=== PATIENT | male | born 1955 | race Caucasian/White ===

== ENCOUNTER 2019-09-13 17:44 | Inpatient (IN) | payer MEDICARE, SELFPAY ==
[2019-09-13 17:46] VITALS: BP 107/46; PULSE 72; RESP 15; TEMP 37.5; O2SAT 96; BMI 34.9
[2019-09-13 18:59] LABS: Absolute Lymphocyte Count 1.16 X10^3/uL (0.83-4.51); Absolute Neutrophil Count 10.5 X10^3/uL (2.0-7.7); Basophil# 0.02 X10^3/uL; Basophil% 0.2 % (0-1); Eosinophil# 0.07 X10^3/uL; Eosinophils% 0.6 % (0-5); Hematocrit 36.6 % (40-54); Hemoglobin 12.4 g/dL (13.0-16.5); Lymphocyte # 1.16 X10^3/ul (4.0); Lymphocyte % 9.3 % (19-41); Mean Corp Hgb Conc 33.9 g/dL (32-36); Mean Corpuscular Hgb 29.5 pg (27.0-32.0); Mean Corpuscular Volume 87.1 fL (80-94); Mean Platelet Vol. 10.6 fl (6.2-12.0); Monocyte# 0.78 X10^3/uL; Monocyte% 6.2 % (0-10); NRBC Flagged by Analyzer 0 % (0-5); Neutrophil # 10.48 X10^3/uL (2.7-7.7); Neutrophil % 83.5 % (47-70); Platelet Count 229 K/mm3 (150-450); RBC Distribution Width CV 13.3 % (11.6-14.6); White Blood Count 12.5 K/mm3 (4.4-11.0)
[2019-09-13 19:10] LABS: ALB/GLOB Ratio 0.8 RATIO (0.9-2.4); AST(SGOT) 17 U/L (15-37); Alanine Aminotransfer ALT/SGPT 23 U/L (16-61); Albumin, Serum 3.1 g/dL (3.2-5.0); Alkaline Phosphatase 70 U/L (45-117); Anion Gap 7 (5-15); BUN 32 mg/dL (7-18); BUN/Creat Ratio 17.9 RATIO (10-20); Chloride 106 mmol/L (98-107); Creatinine, Serum 1.79 mg/dL (0.70-1.30); EST Glomerular Filtration Rate 41 mL/min (>60); Est Glom Filt Rate - Afr Amer 49 mL/min (>60); Estimated Creatinine Clearance 42.48 ml/min; Globulin 4.1 g/dL (2.2-4.2); Glucose 123 mg/dL (74-106); Potassium 3.8 mmol/L (3.5-5.1); Protein, Total 7.2 g/dL (6.4-8.2); Sodium Level 139 mmol/L (136-145)
--- NOTE | 2019-09-13 19:17 | ED.RN ---
notified Dr. Martin of lactic acid 2.0
[2019-09-13] MEDS: 0.9% Normal Saline 1,000 ML 150 ML IV (19:28)
[2019-09-13 20:00] VITALS: BP 124/61; PULSE 62; RESP 16; TEMP 37.7; O2SAT 98
[2019-09-13 20:02] LABS: Mucous, Urine 0 SEEN /hpf (<or=2+)
[2019-09-13 20:10] LABS: Color, Urine Yellow (Yellow); Glucose, Dipstick Normal (Normal); Ketone-Dipstick 5 mg/dl (Negative); Leukocyte Esterase-Dipstick 25 /ul (Negative); Nitrite-Dipstick Negative (Negative); Occult Blood-Urine 10 /ul (Negative); Protein-Dipstick 30 mg/dl (Negative); Urine Clarity Sl. Cloudy (Clear); Urine Urobilinogen 1 mg/dl (Normal)
[2019-09-13 20:15] LABS: Urine Bilirubin Dipstick 1 mg/dL (Negative)
[2019-09-13 20:18] LABS: Bacteria RARE /hpf (None Seen); Red Blood Cells-Urine 0-5 SEEN /hpf (0-5); Squamous Epithelial Cells - UA 0-5 SEEN /hpf (0-5); White Blood Cells 0-5 SEEN /hpf (0-5)
--- NOTE | 2019-09-13 20:30 | ED.DCSUM_ITS ---
- ER Visit Summary Date of Service: 09/13/19 Chief Complaint: [Flulike symptoms] History of Present Illness: The patient is a 63 M [presents to the emergency department with flulike symptoms that started this morning. Patient states that he just generally feels weak and achy and fatigued. Patient's had chills. Patient has just minimal cough. He denies headache or runny nose. Patient is concerned and was advised by his oncologist to be evaluated as he is currently being treated with Opdivo for metastatic colon cancer. He denies any other medical history.] Patient has had prior history of cellulitis and sepsis regarding that bout of cellulitis which patient states was acutely life- threatening at that time. Physical Examination: [HEENT-PERRLA, EOMI. Cranial nerves II through XII grossly intact. TMs clear. Mucous membranes moist. No adenopathy. Cardiovascular-regular rate and rhythm without murmur or ectopy Lungs-clear to auscultation, chest wall stable without crepitus or subcu emphysema Abdomen-normoactive bowel sounds, soft, nontender, no rebound or rigidity, no peritoneal signs. Extremities-intact ?4, normal range of motion, normal pulses, atraumatic. Right lower extremity-patient has diffuse erythema from just below the knee to the dorsum of the foot. Findings consistent with cellulitis.] Test Results: [CBC with differential obtained showed a white count 12.5, hemoglobin 12.4, hematocrit 36.6, platelets 229. Chemistries unremarkable. BUN was 32 and creatinine 1.79. Urinalysis was normal. Lactate was 2.0.] Emergency Department Course and Treatment: [Patient was started on Unasyn 3 g IV. Patient had the area of erythema outlined with marker.] Treatment Plan: [Admit for IV antibiotics as patient is immune compromised.] Disposition: [Admit] Impression: Cellulitis right lower extremity] This note was generated with [employer] dictation software. It may contain incorrect words, spelling, and punctuation that were not noted in review of the chart prior to signing ED Disposition - Plan for ED Patient: Referrals: Anabela Arita MD [Primary Care Provider] -
--- NOTE | 2019-09-13 20:43 | PCM.HP.STD ---
Problem List (1) Cellulitis Status: Acute History of Present Illness Date of Admission: 09/14/19 Chief Complaint: flu-like symptoms The patient is a 63 year old M with significant history of CAD; status post stent; colon cancer status post colectomy and now on Opdivo who presents emergency department with flulike symptoms. His symptoms started the same day of presentation. He reports his symptoms as a body aches, low-grade fever with temperature of 99.3; chills; rigors; and a cough productive of yellow sputum. Patient's called patient's oncologist Dr. Urban Zendejas at [place] who advised that patient be brought to the emergency department. While at the emergency department, ED doctor noticed that patient had a redness on his right lloyd. Reportedly patient had cellulitis of his left leg some years ago and he nearly from it. A decision was made to admit the patient at the hospital. Past Medical History Medical History: Medical History (Last Reviewed 09/14/19 @ 02:[address] Miguel Obregon MD) Colon cancer C18.9 Allergies No Known Allergies Allergy (Verified 09/13/19 17:48) Home Medications: Ambulatory Orders Medication Instructions Recorded Aspirin [Aspirin, Baby] 81 mg PO DAILY@0800 09/13/19 Carvedilol 25 mg PO BID 09/13/19 Clonidine HCl 0.3 mg PO BID 09/13/19 Isosorbide Mononitrate [Isosorbide 30 mg PO DAILY 09/13/19 Mononitrate ER] Losartan/Hydrochlorothiazide 1 tab PO QHS 09/13/19 [Hyzaar 50-12.5 Tablet] Morphine [Morphine IR] 15 mg PO TID PRN 09/13/19 traMADol [Ultram (G)] 100 mg PO BID PRN 09/13/19 Surgical History: - - Colectomy; Coronary stent Lives: Spouse/ Significant Other Smoking Status: Former smoker Alcohol: None - *Family History Maternal History Items: Cancer - Breast, Dementia Paternal History Items: Heart Disease - His father had heart valve problem. Review of Systems Constitutional: Reports: Chills, Fever. Denies: Weight Change HEENT: Denies: Head Aches, Sinus Congestion, Sinus Drainage Cardiovascular: Denies: Chest Pain, Palpitations Respiratory: Reports: Cough, Sputum production. Denies: Shortness of breath at rest Gastrointestinal: Denies: Abdominal Pain, Nausea, Vomiting Genitourinary: Denies: Dysuria Musculoskeletal: Reports: Muscle pain. Denies: Joint Pain, Joint Tenderness Skin: Denies: Rash, Wounds Neurological: Denies: Numbness, Tingling, Focal weakness Psychiatric: Denies: Anxiety, Depression, Homicidal Ideations, Suicidal Ideations Hematologic/ Lymphatic: Denies: Easy Bruising, Easy Bleeding VTE Information - Inpt Only VTE Present on Admission: No VTE Mechan Device Prophylaxis: None VTE Pharm Prophylaxis ordered?: Yes Patient Problems: Active and Suspected Problems (Last Updated 09/14/19 @ 01:[address] Miguel Obregon MD) Cellulitis (Acute) - Physical Exam Vitals/I&O's: Vital Signs Temp Pulse Resp BP Pulse Ox 99.8 F H 62 16 124/61 H 98 09/13/19 20:00 09/13/19 20:00 09/13/19 20:00 09/13/19 20:00 09/13/19 20:00 Oxygen Delivery Method Room Air Weight: 110.5 kg Body Mass Index (BMI) 34.9 General: Alert, Oriented x3, Cooperative HEENT: Atraumatic, PERRLA, EOMI, Normocephalic Neck: Supple, No JVD, Negative Carotid Bruits Lungs: Clear to auscultation, Normal air movement Cardiovascular: Regular rate, Normal S1, Normal S2, Murmur Abdomen: Bowel Sounds Present, Soft, Non Tender Extremities: No edema, Capillary Refill Less than 3 Seconds Skin: No rashes, No breakdown, - - Erythema of right lloyd Musculoskeletal: No Tenderness to Palpation of Joints or Extremities, Tenderness - Mild tenderness erythematous area of right lloyd. Neurological: Cranial nerves II-XII grossly intact Psych/Mental Status: Normal Affect, Appropriate Microbiology Past 72 Hours 09/13/19 18:52 Mucosa - Nasopharyngeal Influenza Types A,B Direct FA (BRANDEN) - Final Laboratory Results 09/13/19 18:30: WBC 12.5 H, RBC 4.20 L, Hgb 12.4 L, Hct 36.6 L, MCV 87.1, MCH 29.5, MCHC 33.9, RDW Std Deviation 42.0, RDW Coeff of Henrry 13.3, Plt Count 229, MPV 10.6, Immature Gran % (Auto) 0.200, Neut % (Auto) 83.5 H, Lymph % (Auto) 9.3 L, [place] % (Auto) 6.2, Eos % (Auto) 0.6, Baso % (Auto) 0.2, Absolute Neuts (auto) 10.5 H, Absolute Lymphs (auto) 1.16, Nucleated RBC % 0 09/13/19 18:30: Sodium 139, Potassium 3.8, Chloride 106, Carbon Dioxide 26.0, Anion Gap 7, BUN 32 H, Creatinine 1.79 H, Estim Creat Clear Calc 42.48, Est GFR (MDRD) Af Amer 49 L, Est GFR (MDRD) Non-Af 41 L, BUN/Creatinine Ratio 17.9, Glucose 123 H, Calcium 9.0, Total Bilirubin 1.10 H, AST 17, ALT 23, Alkaline Phosphatase 70, Total Protein 7.2, Albumin 3.1 L, Globulin 4.1, Albumin/Globulin Ratio 0.8 L 09/13/19 18:30: Lactic Acid 2.0 09/13/19 19:50: Urine Color Yellow, Urine Clarity Sl. Cloudy, Urine pH 5.0, Ur Specific [place] 1.020, Urine Protein 30 H, Urine Glucose (UA) Normal, Urine Ketones 5 H, Urine Occult Blood 10 H, Urine Nitrite Negative, Urine Bilirubin 1 H, Urine Urobilinogen 1 H, Ur Leukocyte Esterase 25 H, Urine RBC 0-5 SEEN, Urine WBC 0-5 SEEN, Ur Squamous Epith Cells 0-5 SEEN, Urine Bacteria RARE, Urine Mucus 0 SEEN Current Medications Sodium Chloride () 1,000 mls @ 150 mls/hr IV .Q6H40M SAMMY Last Admin: 09/13/19 19:28 Dose: 150 mls/hr Documented by: Assessment/Plan All Active Problems (Last Updated 09/14/19 @ 01:[address] Miguel Obregon MD) Cellulitis (Acute) The patient is a 63 year old M with significant history of CAD S/P stent; colon cancer status post colectomy and now on Opdivo who presents emergency department with flulike symptoms of erythema on the right lloyd with some mild tenderness consistent with cellulitis. Cellulitis Patient received Unasyn at emergency department. We will continue patient on Unasyn. We will trend CBC and BMP. Tylenol for fever. Colon cancer status post resection and on Opdivo Home morphine and tramadol continued. Outpatient follow-up. TRISTIN On presentation his creatinine was 1.79. Review of community records show that on 09/04/2019 his creatinine was 1.06; and on 08/07/2019 his creatinine was 1.32. On presentation was 32. BUN over creatinine is 17.9. This point towards possible intrinsic renal failure. We will hydrate with IV fluids. Avoid nephrotoxins. Trend BMP. Hypertension On presentation his blood pressure was stable On home clonidine; carvedilol; Imdur; losartan and hydrochlorothiazide. Continue home blood pressure medications. Trend blood pressure and adjust blood pressure medication as necessary. DVT Prophylaxis Subcutaneous Lovenox. Code Visit Inpatient E&M: 21802 Init Hosp L3
--- NOTE | 2019-09-13 22:36 | ED.RN ---
hospitalist aware of not being able to bring in CPAP tonight and would like to use hospital CPAP
[2019-09-13 22:51] VITALS: BMI 35.0; BMI 35.1
[2019-09-13 22:54] LABS: Reflex Lactate? Y
[2019-09-13 23:40] VITALS: BP 116/60; PULSE 59; RESP 16; TEMP 36.8; O2SAT 95
[2019-09-13 23:51] LABS: Lactic Acid 0.7 mmol/L (0.4-1.9)
--- NOTE | 2019-09-14 02:21 | NURSING ---
500 CC BAG FROM ED INFUSING @ 100ML/HR.
[2019-09-14 06:11] VITALS: BP 163/72; PULSE 62; RESP 16; TEMP 36.7; O2SAT 93
[2019-09-14 06:21] LABS: Absolute Lymphocyte Count 2.11 X10^3/uL (0.83-4.51); Absolute Neutrophil Count 4.2 X10^3/uL (2.0-7.7); Basophil# 0.02 X10^3/uL; Basophil% 0.3 % (0-1); Eosinophil# 0.05 X10^3/uL; Eosinophils% 0.7 % (0-5); Hematocrit 32.8 % (40-54); Hemoglobin 10.8 g/dL (13.0-16.5); Lymphocyte # 2.11 X10^3/ul (4.0); Lymphocyte % 30.1 % (19-41); Mean Corp Hgb Conc 32.9 g/dL (32-36); Mean Corpuscular Hgb 28.6 pg (27.0-32.0); Mean Platelet Vol. 10.2 fl (6.2-12.0); Monocyte# 0.65 X10^3/uL; Monocyte% 9.3 % (0-10); NRBC Flagged by Analyzer 0 % (0-5); Neutrophil # 4.15 X10^3/uL (2.7-7.7); Neutrophil % 59.3 % (47-70); Platelet Count 154 K/mm3 (150-450); RBC Distribution Width CV 13.5 % (11.6-14.6); RBC Distribution Width SD 43.2 fl (35.1-43.9); Red Blood Count 3.77 M/mm3 (4.6-6.2)
[2019-09-14 06:44] LABS: Anion Gap 5 (5-15); BUN 34 mg/dL (7-18); BUN/Creat Ratio 24.3 RATIO (10-20); Calcium,Total 8.5 mg/dL (8.5-10.1); Chloride 106 mmol/L (98-107); EST Glomerular Filtration Rate 54 mL/min (>60); Est Glom Filt Rate - Afr Amer 65 mL/min (>60); Estimated Creatinine Clearance 54.32 ml/min; Glucose 92 mg/dL (74-106); Potassium 3.4 mmol/L (3.5-5.1); Sodium Level 140 mmol/L (136-145)
[2019-09-14] MEDS: 0.9% Normal Saline 1,000 ML 100 ML IV ×2 (06:49→18:21)
[2019-09-14 07:25] VITALS: O2SAT 93
[2019-09-14 07:38] VITALS: PULSE 70
[2019-09-14] MEDS: Nystatin Powder 15gm Bottle 1 APPLIC TOPICAL (07:47)
[2019-09-14] MEDS: Enoxaparin 40 MG/0.4 ML Syringe SC (07:47)
[2019-09-14] MEDS: Carvedilol 25 MG Tablet PO ×2 (07:48→21:10)
[2019-09-14] MEDS: cloNIDine HCl 0.1 MG Tablet 0.3 MG PO ×2 (07:48→21:10)
[2019-09-14] MEDS: Isosorbide Mononitrate 30 MG Tablet PO (07:49)
[2019-09-14] MEDS: Aspirin 81 MG TAB.CHEW PO (07:49)
[2019-09-14] MEDS: traMADol 50 MG Tablet 100 MG PO ×2 (07:57→21:12)
[2019-09-14 10:30] VITALS: BP 109/55; PULSE 57; RESP 16; TEMP 36.6; O2SAT 98
[2019-09-14] MEDS: morphine (oral solution) 10MG/0.5ML Syringe 15 MG PO ×2 (10:37→16:20)
--- NOTE | 2019-09-14 11:07 | PCM.PN.HOSP ---
Patient Problems: Active and Suspected Problems (Last Reviewed 09/14/19 @ 02:[address] Miguel Obregon MD) Cellulitis (Acute) Reason for Visit: Right leg cellulitis. Patient on immunotherapy for CA colon status post surgery and chemotherapy. Objective: Right lower leg rash is improving. No open ulcer. Vitals/I&O's: Vital Signs Temp Pulse Resp BP Pulse Ox 97.8 F 57 L 16 109/55 L 98 09/14/19 10:30 09/14/19 10:30 09/14/19 10:30 09/14/19 10:30 09/14/19 10:30 Oxygen Delivery Method Room Air Weight: 244 lb 7.882 oz Body Mass Index (BMI) 35.0 Intake and Output for Last 24 Hours 09/12/19 09/13/19 09/14/19 23:59 23:59 23:59 Intake Total 112 / 112 1724 / 1724 Balance 112 / 112 1724 / 1724 General: Alert, Oriented x3, Cooperative HEENT: Atraumatic, PERRLA, EOMI, Normocephalic Neck: Supple, No JVD, Negative Carotid Bruits Lungs: Clear to auscultation, Normal air movement, No rhonchi, No wheeze, No rales Cardiovascular: Regular rate, Regular Rhythm, Normal S1, Normal S2, No murmurs Abdomen: Bowel Sounds Present, Soft, Non Tender, Non-Distended Extremities: No edema, Capillary Refill Less than 3 Seconds Skin: No rashes, No breakdown Musculoskeletal: No Tenderness to Palpation of Joints or Extremities, Arthritic Changes Neurological: Cranial nerves II-XII grossly intact, Deep Tendon Reflexes 2+/4 and Symmetrical, Neuro grossly intact Psych/Mental Status: Normal Affect, Appropriate Microbiology Past 72 Hours 09/13/19 18:52 Mucosa - Nasopharyngeal Influenza Types A,B Direct FA (BRANDEN) - Final Laboratory Results 09/13/19 18:30: WBC 12.5 H, RBC 4.20 L, Hgb 12.4 L, Hct 36.6 L, MCV 87.1, MCH 29.5, MCHC 33.9, RDW Std Deviation 42.0, RDW Coeff of Henrry 13.3, Plt Count 229, MPV 10.6, Immature Gran % (Auto) 0.200, Neut % (Auto) 83.5 H, Lymph % (Auto) 9.3 L, [place] % (Auto) 6.2, Eos % (Auto) 0.6, Baso % (Auto) 0.2, Absolute Neuts (auto) 10.5 H, Absolute Lymphs (auto) 1.16, Nucleated RBC % 0 09/13/19 18:30: Sodium 139, Potassium 3.8, Chloride 106, Carbon Dioxide 26.0, Anion Gap 7, BUN 32 H, Creatinine 1.79 H, Estim Creat Clear Calc 42.48, Est GFR (MDRD) Af Amer 49 L, Est GFR (MDRD) Non-Af 41 L, BUN/Creatinine Ratio 17.9, Glucose 123 H, Calcium 9.0, Total Bilirubin 1.10 H, AST 17, ALT 23, Alkaline Phosphatase 70, Total Protein 7.2, Albumin 3.1 L, Globulin 4.1, Albumin/Globulin Ratio 0.8 L 09/13/19 18:30: Lactic Acid 2.0 09/13/19 19:50: Urine Color Yellow, Urine Clarity Sl. Cloudy, Urine pH 5.0, Ur Specific [place] 1.020, Urine Protein 30 H, Urine Glucose (UA) Normal, Urine Ketones 5 H, Urine Occult Blood 10 H, Urine Nitrite Negative, Urine Bilirubin 1 H, Urine Urobilinogen 1 H, Ur Leukocyte Esterase 25 H, Urine RBC 0-5 SEEN, Urine WBC 0-5 SEEN, Ur Squamous Epith Cells 0-5 SEEN, Urine Bacteria RARE, Urine Mucus 0 SEEN 09/13/19 23:15: Lactic Acid 0.7 09/14/19 05:55: WBC 7.0, RBC 3.77 L, Hgb 10.8 L, Hct 32.8 L, MCV 87.0, MCH 28.6, MCHC 32.9, RDW Std Deviation 43.2, RDW Coeff of Henrry 13.5, Plt Count 154, MPV 10.2, Immature Gran % (Auto) 0.300, Neut % (Auto) 59.3, Lymph % (Auto) 30.1, [place] % (Auto) 9.3, Eos % (Auto) 0.7, Baso % (Auto) 0.3, Absolute Neuts (auto) 4.2, Absolute Lymphs (auto) 2.11, Nucleated RBC % 0 09/14/19 05:55: Sodium 140, Potassium 3.4 L, Chloride 106, Carbon Dioxide 29.0, Anion Gap 5, BUN 34 H, Creatinine 1.40 H, Estim Creat Clear Calc 54.32, Est GFR (MDRD) Af Amer 65, Est GFR (MDRD) Non-Af 54 L, BUN/Creatinine Ratio 24.3 H, Glucose 92, Calcium 8.5 Current Medications Acetaminophen (Tylenol) 650 mg PO Q6H PRN PRN PRN Reason: Pain Score 1-10/Temp > 100.7 F Aspirin (Aspirin, Baby) 81 mg PO DAILY@0800 [facility] Last Admin: 09/14/19 07:49 Dose: 81 mg Documented by: Carvedilol (Coreg) 25 mg PO BID [facility] Last Admin: 09/14/19 07:48 Dose: 25 mg Documented by: Clonidine (Catapres) 0.3 mg PO BID [facility] Last Admin: 09/14/19 07:48 Dose: 0.3 mg Documented by: Enoxaparin Sodium (Lovenox) 40 mg SC DAILY [facility] Last Admin: 09/14/19 07:47 Dose: 40 mg Documented by: Glucagon () 1 mg IM .X1 PRN PRN Reason: Hypoglycemia Hydrochlorothiazide () 12.5 mg PO DAILY@2200 [facility] Ampicillin Sodium/Sulbactam (Sodium 3 gm/ Sodium Chloride) 112 mls @ 150 mls/hr IV Q6 [facility] Last Infusion: 09/14/19 07:14 Dose: Infused Documented by: Dextrose (Dextrose 10%-Water) 250 mls @ 999 mls/hr IV .Q16M PRN; Protocol PRN Reason: HYPOGLYCEMIA Sodium Chloride () 250 mls @ 15 mls/hr IV .[id number] PRN PRN Reason: Saline Flush Sodium Chloride () 250 mls @ 15 mls/hr IV .[id number] PRN PRN Reason: Additional IVPB Infusion Sodium Chloride () 1,000 mls @ 100 mls/hr IV .Q10H [facility] Last Infusion: 09/14/19 07:14 Dose: 100 mls/hr Documented by: Isosorbide Mononitrate (Imdur) 30 mg PO DAILY [facility] Last Admin: 09/14/19 07:49 Dose: 30 mg Documented by: Losartan Potassium (Cozaar) 50 mg PO DAILY@2200 [facility] Melatonin (Melatonin) 3 mg PO QHS PRN PRN PRN Reason: INSOMNIA Morphine Sulfate (Roxanol (Ir Oral Solution)) 15 mg PO TID PRN PRN PRN Reason: PAIN 6-1010 Last Admin: 09/14/19 10:37 Dose: 15 mg Documented by: Nystatin (Mycostatin Powder) 1 applic TOPICAL BID [facility]; Protocol Last Admin: 09/14/19 07:47 Dose: 1 applicatio Documented by: Ondansetron HCl (Zofran) 4 mg IV Q8H PRN PRN PRN Reason: NAUSEA/VOMITING Sodium Chloride () 10 - 40 ml IV UD PRN PRN Reason: SALINE FLUSH Tramadol HCl (Ultram) 100 mg PO BID PRN PRN PRN Reason: PAIN 4-510 Last Admin: 09/14/19 07:57 Dose: 100 mg Documented by: STROKE Vital Signs/Narrative: Vital Signs Temp Pulse Resp BP Pulse Ox 09/14/19 10:30 97.8 F 57 L 16 109/55 L 98 09/14/19 07:38 70 09/14/19 07:25 93 Medical Necessity - Tobacco Use Smoking Status: Former smoker Tobacco Use: Cigarettes Assessment/Plan All Active Problems (Last Reviewed 09/14/19 @ 02:[address] Miguel Obregon MD) Cellulitis (Acute) The patient is a 63 year old M with significant history of CAD S/P stent; colon cancer status post colectomy and now on Opdivo who presents emergency department with flulike symptoms of erythema on the right lloyd with some mild tenderness consistent with cellulitis. Cellulitis: On Unasyn. Leukocytosis is resolved. Colon cancer status post resection and on Opdivo. Opdivo on hold. Home morphine and tramadol continued. Outpatient follow-up. TRISTIN On presentation his creatinine was 1.79. on 09/04/2019 his creatinine was 1.06; and on 08/07/2019 his creatinine was 1.32. BUN 32, BUN/creatinine 17.9. It seems most likely secondary to intrinsic renal failure/ATN: Continue IV fluid. Improvement in creatinine. Avoid nephrotoxins. Hypertension On presentation his blood pressure was stable On home clonidine; carvedilol; Imdur; losartan and hydrochlorothiazide. Continue home blood pressure medications. Trend blood pressure and adjust blood pressure medication as necessary. DVT Prophylaxis Subcutaneous Lovenox. Code Visit Inpatient E&M: 56967 Subs Hosp L2
--- NOTE | 2019-09-14 12:05 | CASEMGMT ---
RN JACKY Face to Face with patient for initial transition planning/care coordination assessment. RN CM introduced self and role at [facility]. Patient lying in bed, alert and oriented. Patient willing to participate in assessment and is able to answer all questions appropriately. Care providers, pharmacy, and demographics verified. Patient wishes to discharge home, denies need for home health at this time. Patient states he has no further needs or concerns at this time. CM to follow for discharge planning needs that may arise. PCP: Juan J Specialists: Aashish Oncologist; Preferred Pharmacy: [facility] Prescription Benefit: yes Living Will/HPOA: none LNOK: Living Arrangements: Patient lives with in an apartment on 1st floor with 4 steps and railing to enter the home. Patient independent at home. Transportation: self/ DME/HHC: Patient has cpap at home. Patient denies further DME or HHC. Disposition Plan: Patient to discharge home with family support and follow-up plans in place. Samira FLORES, RN, CM
[2019-09-14 14:47] VITALS: BP 132/74; PULSE 54; RESP 16; TEMP 36.6; O2SAT 98
[2019-09-14 19:42] VITALS: BP 157/80; PULSE 56; RESP 16; TEMP 36.6; O2SAT 100
[2019-09-15] VITALS (8 sets, daily range): BP systolic 158–185; BP diastolic 66–84; PULSE 52–59; RESP 16–18; TEMP 36.5–36.9; O2SAT 94–991
[2019-09-15] MEDS: 0.9% Normal Saline 1,000 ML 100 ML IV (05:06)
[2019-09-15 06:38] LABS: Absolute Lymphocyte Count 1.75 X10^3/uL (0.83-4.51); Absolute Neutrophil Count 2.4 X10^3/uL (2.0-7.7); Basophil# 0.02 X10^3/uL; Basophil% 0.4 % (0-1); Eosinophil# 0.22 X10^3/uL; Eosinophils% 4.5 % (0-5); Hematocrit 32.9 % (40-54); Hemoglobin 10.9 g/dL (13.0-16.5); Lymphocyte # 1.75 X10^3/ul (4.0); Lymphocyte % 35.8 % (19-41); Mean Corp Hgb Conc 33.1 g/dL (32-36); Mean Corpuscular Hgb 29.2 pg (27.0-32.0); Mean Corpuscular Volume 88.2 fL (80-94); Mean Platelet Vol. 10.6 fl (6.2-12.0); Monocyte# 0.52 X10^3/uL; Monocyte% 10.6 % (0-10); NRBC Flagged by Analyzer 0 % (0-5); Neutrophil # 2.37 X10^3/uL (2.7-7.7); Neutrophil % 48.5 % (47-70); Platelet Count 147 K/mm3 (150-450); RBC Distribution Width CV 13.3 % (11.6-14.6); RBC Distribution Width SD 43.2 fl (35.1-43.9); Red Blood Count 3.73 M/mm3 (4.6-6.2); White Blood Count 4.9 K/mm3 (4.4-11.0)
[2019-09-15 07:07] LABS: Anion Gap 5 (5-15); BUN 28 mg/dL (7-18); BUN/Creat Ratio 27.7 RATIO (10-20); Calcium,Total 8.5 mg/dL (8.5-10.1); Chloride 111 mmol/L (98-107); Creatinine, Serum 1.01 mg/dL (0.70-1.30); EST Glomerular Filtration Rate 79 mL/min (>60); Est Glom Filt Rate - Afr Amer 95 mL/min (>60); Estimated Creatinine Clearance 75.29 ml/min; Glucose 100 mg/dL (74-106); Potassium 3.7 mmol/L (3.5-5.1); Sodium Level 139 mmol/L (136-145)
[2019-09-15] MEDS: Aspirin 81 MG TAB.CHEW PO (08:44)
[2019-09-15] MEDS: morphine (oral solution) 10MG/0.5ML Syringe 15 MG PO (09:04)
[2019-09-15] MEDS: cloNIDine HCl 0.1 MG Tablet 0.3 MG PO (09:11)
[2019-09-15] MEDS: Carvedilol 25 MG Tablet PO (09:11)
[2019-09-15] MEDS: Enoxaparin 40 MG/0.4 ML Syringe SC (09:12)
[2019-09-15] MEDS: Nystatin Powder 15gm Bottle 1 APPLIC TOPICAL (09:13)
[2019-09-15] MEDS: Isosorbide Mononitrate 30 MG Tablet PO (09:15)
--- NOTE | 2019-09-15 10:15 | PCM.DC ---
- Discharge Diagnoses Current Active Problems: Current Active and Chronic Problems (Last Reviewed 09/14/19 @ 02:[address] Miguel Obregon MD) Cellulitis (Acute) You will use the following diet at home:: Cardiac Your food should be the consistency of: Regular Discharge Activity: May Not Drive - for 2 weeks until he sees PCP Weight Bearing Status: Weight bearing as tolerated Call your doctor if you observe: Fever of 101 or Higher, Coldness, Increased Pain, Inability to urinate, Inability to have a bowel movement, Shortness of breath, Dizziness, Fainting spells, Swelling in the ankles, Chest pain, Prolonged hiccoughing, Increased palpitations (irregular heartbeat), Calf discomfort Allergies/Adverse Reactions: Allergies cat dander Allergy (Verified 09/13/19 23:23) itchy, watery eyes Medications to take at Discharge Aspirin [Aspirin, Baby] 81 mg PO DAILY@0800 09/13/19 Carvedilol 25 mg PO BID 09/13/19 Clonidine HCl 0.3 mg PO BID 09/13/19 Isosorbide Mononitrate [Isosorbide Mononitrate ER] 30 mg PO DAILY 09/13/19 Losartan/Hydrochlorothiazide [Hyzaar 50-12.5 Tablet] 1 tab PO QHS 09/13/19 Morphine [Morphine IR] 15 mg PO TID PRN 09/13/19 traMADol [Ultram] 100 mg PO BID PRN 09/13/19 Amoxicillin/Potassium Clav [Augmentin 875-125 Tablet] 1 ea PO BID #14 tab 09/15/19 The following prescriptions were given: Amoxicillin/Potassium Clav [Augmentin 875-125 Tablet] 1 ea PO BID #14 tab Transmission Status: Sent to [facility] Primary Care Physician: Anabela Arita MD [Primary Care Provider] - Please follow up with your Primary Care Physician in: IN 2 WEEKS Test Results: Test results from this visit will be discussed in further detail at your follow-up appointment, if applicable. Please Follow Up With: Chong Loera MD When: PRN as needed for cellulitis in 2-4 weeks
--- NOTE | 2019-09-15 10:16 | PCM.DC.SUM ---
Discharge Date and Diagnosis Date of Admission: 09/14/19 Date of Discharge: 09/15/19 - Primary Discharge Diagnosis Active and Suspected Problems (Last Reviewed 09/14/19 @ 02:[address] Miguel Obregon MD) Cellulitis (Acute) Hospital Course and Treatment Summary of Care Provided: [] The patient is a 63 year old M with significant history of CAD S/P stent; colon cancer status post colectomy and now on Opdivo who presents emergency department with flulike symptoms of erythema on the right lloyd with some mild tenderness consistent with cellulitis. Cellulitis: On Unasyn. Leukocytosis is resolved. Colon cancer status post resection and on Opdivo. Opdivo on hold. Home morphine and tramadol continued. Outpatient follow-up. TRISTIN On presentation his creatinine was 1.79. on 09/04/2019 his creatinine was 1.06; and on 08/07/2019 his creatinine was 1.32. BUN 32, BUN/creatinine 17.9. It seems most likely secondary to intrinsic renal failure/ATN: Continue IV fluid. Improvement in creatinine. Avoid nephrotoxins. Hypertension urgency: As per patient, his blood pressure usually controlled but today it is high. 168/73, 175/75. Hydralazine 10 mg IV every 4 hourly as needed. On clonidine 0.3 mg twice daily. Continue clonidine; carvedilol; Imdur; losartan and hydrochlorothiazide. Continue home blood pressure medications. Blood pressure was controlled. Patient takes losartan HCTZ in the evening. Blood pressure decreased to systolic 160s. DVT Prophylaxis Subcutaneous Lovenox. Discharge medication reconciliation done. Discharge follow-up instructions completed. Discharge process discussed with the patient and all questions were answered to patient's satisfaction. Follow-up PCP for better control of hypertension. Total time spent, exact 35 minutes on discharge meds reconciliation, examination, coordination of care with nurses and ancillary staff, review of imaging and blood test and discussion with the patient on follow-up instructions - Physical Exam Vitals/I&O's: Vital Signs Temp Pulse Resp BP Pulse Ox 98.0 F 59 L 18 185/78 H 94 09/15/19 08:47 09/15/19 08:47 09/15/19 08:47 09/15/19 08:47 09/15/19 08:56 Oxygen Delivery Method Room Air Weight: 244 lb 7.882 oz Body Mass Index (BMI) 35.0 Intake and Output for Last 24 Hours 09/13/19 09/14/19 09/15/19 23:59 23:59 23:59 Intake Total 112 / 112 4513 / 4763 969.00 / 969.00 Output Total 775 / 775 Balance 112 / 112 4513 / 4238 194.00 / 194.00 General: Alert, Oriented x3, Cooperative HEENT: Atraumatic, PERRLA, EOMI, Normocephalic Oral: No Gingival or Mucosal Lesions/ Ulcerations, Dry Mucosa Neck: Supple, No JVD, Negative Carotid Bruits, - Lungs: Normal air movement, No rhonchi, No wheeze, No rales, Diminished Cardiovascular: Regular rate, Regular Rhythm, Normal S1, Normal S2, No murmurs, - - Blood pressure is high Abdomen: Bowel Sounds Present, Soft, Non Tender, Non-Distended Extremities: No edema, Capillary Refill Less than 3 Seconds Skin: No rashes, No breakdown, Rash Present - Much improved Musculoskeletal: No Tenderness to Palpation of Joints or Extremities, Arthritic Changes Neurological: Cranial nerves II-XII grossly intact Psych/Mental Status: Normal Affect, Appropriate Microbiology Past 72 Hours 09/13/19 18:52 Mucosa - Nasopharyngeal Influenza Types A,B Direct FA (BRANDEN) - Final Laboratory Results 09/15/19 06:16: WBC 4.9, RBC 3.73 L, Hgb 10.9 L, Hct 32.9 L, MCV 88.2, MCH 29.2, MCHC 33.1, RDW Std Deviation 43.2, RDW Coeff of Henrry 13.3, Plt Count 147 L, MPV 10.6, Immature Gran % (Auto) 0.200, Neut % (Auto) 48.5, Lymph % (Auto) 35.8, Mcclain % (Auto) 10.6 H, Eos % (Auto) 4.5, Baso % (Auto) 0.4, Absolute Neuts (auto) 2.4, Absolute Lymphs (auto) 1.75, Nucleated RBC % 0 09/15/19 06:16: Sodium 139, Potassium 3.7, Chloride 111 H, Carbon Dioxide 23.0, Anion Gap 5, BUN 28 H, Creatinine 1.01, Estim Creat Clear Calc 75.29, Est GFR (MDRD) Af Amer 95, Est GFR (MDRD) Non-Af 79, BUN/Creatinine Ratio 27.7 H, Glucose 100, Calcium 8.5 Current Medications Acetaminophen (Tylenol) 650 mg PO Q6H PRN PRN PRN Reason: Pain Score 1-10/Temp > 100.7 F Aspirin (Aspirin, Baby) 81 mg PO DAILY@0800 [facility] Last Admin: 09/15/19 08:44 Dose: 81 mg Documented by: Carvedilol (Coreg) 25 mg PO BID [facility] Last Admin: 09/15/19 09:11 Dose: 25 mg Documented by: Clonidine (Catapres) 0.3 mg PO BID [facility] Last Admin: 09/15/19 09:11 Dose: 0.3 mg Documented by: Enoxaparin Sodium (Lovenox) 40 mg SC DAILY [facility] Last Admin: 09/15/19 09:12 Dose: 40 mg Documented by: Glucagon () 1 mg IM .X1 PRN PRN Reason: Hypoglycemia Hydralazine HCl (Apresoline Iv) 10 mg IV Q4H PRN PRN PRN Reason: SBP>180 mmhg Hydralazine HCl (Apresoline) 50 mg PO BID [facility] Ampicillin Sodium/Sulbactam (Sodium 3 gm/ Sodium Chloride) 112 mls @ 150 mls/hr IV Q6 [facility] Last Infusion: 09/15/19 05:52 Dose: Infused Documented by: Dextrose (Dextrose 10%-Water) 250 mls @ 999 mls/hr IV .Q16M PRN; Protocol PRN Reason: HYPOGLYCEMIA Sodium Chloride () 250 mls @ 15 mls/hr IV .[id number] PRN PRN Reason: Saline Flush Sodium Chloride () 250 mls @ 15 mls/hr IV .[id number] PRN PRN Reason: Additional IVPB Infusion Sodium Chloride () 1,000 mls @ 100 mls/hr IV .Q10H [facility] Last Infusion: 09/15/19 05:52 Dose: 100 mls/hr Documented by: Isosorbide Mononitrate (Imdur) 30 mg PO DAILY [facility] Last Admin: 09/15/19 09:15 Dose: 30 mg Documented by: Melatonin (Melatonin) 3 mg PO QHS PRN PRN PRN Reason: INSOMNIA Morphine Sulfate (Roxanol (Ir Oral Solution)) 15 mg PO TID PRN PRN PRN Reason: PAIN 6-10/10 Last Admin: 09/15/19 09:04 Dose: 15 mg Documented by: Nystatin (Mycostatin Powder) 1 applic TOPICAL BID SAMMY; Protocol Last Admin: 09/15/19 09:13 Dose: 1 applicatio Documented by: Ondansetron HCl (Zofran) 4 mg IV Q8H PRN PRN PRN Reason: NAUSEA/VOMITING Sodium Chloride () 10 - 40 ml IV UD PRN PRN Reason: SALINE FLUSH Tramadol HCl (Ultram) 100 mg PO BID PRN PRN PRN Reason: PAIN 4-510 Last Admin: 09/14/19 21:12 Dose: 100 mg Documented by: Home Medications: Medications to take at Discharge Aspirin [Aspirin, Baby] 81 mg PO DAILY@0800 09/13/19 Carvedilol 25 mg PO BID 09/13/19 Clonidine HCl 0.3 mg PO BID 09/13/19 Isosorbide Mononitrate [Isosorbide Mononitrate ER] 30 mg PO DAILY 09/13/19 Losartan/Hydrochlorothiazide [Hyzaar 50-12.5 Tablet] 1 tab PO QHS 09/13/19 Morphine [Morphine IR] 15 mg PO TID PRN 09/13/19 traMADol [Ultram] 100 mg PO BID PRN 09/13/19 Amoxicillin/Potassium Clav [Augmentin 875-125 Tablet] 1 ea PO BID #14 tab 09/15/19 Following Prescrptions Were Given to Patient: Amoxicillin/Potassium Clav [Augmentin 875-125 Tablet] 1 ea PO BID #14 tab Transmission Status: Received by [facility] Primary Care Physician: Anabela Arita MD [Primary Care Provider] - Medical Necessity - Tobacco Use Smoking Status: Former smoker Tobacco Use: Cigarettes Meaningful Use Info Meaningful Use Diagnoses (Choose all that apply): None applicable Code Visit Inpatient E&M: 57516 Disch Hosp
[2019-09-15] MEDS: traMADol 50 MG Tablet 100 MG PO (12:01)
[2019-09-15] MEDS: hydrALAZINE 20 MG/ML Vial 5 MG IV (13:53)
[2019-09-15] MEDS: hydrALAZINE 20 MG/ML Vial 10 MG IV (15:34)
[2019-09-15] MEDS: 0.9% Saline Lock 10 ML Syringe IV (15:36)
== END 2019-09-15 17:08 | disposition home or self-care (01) | DRG 602 ==
LOC: ED 20:57 → MS3 21:06
PROVIDERS: Admitting Provider Hospitalist; Emergency Provider Emergency Medicine; PCP Counselor Mental Health; Visit Provider Internal Medicine
DX: L03.115 Cellulitis of right lower limb (principal); N17.0 Acute kidney failure with tubular necrosis; C18.9 Malignant neoplasm of colon, unspecified; I16.0 Hypertensive urgency; I10 Essential (primary) hypertension; Z90.49 Acquired absence of other specified parts of digestive tract; Z95.5 Presence of coronary angioplasty implant and graft; Z79.899 Other long term (current) drug therapy; Z87.891 Personal history of nicotine dependence
CPT/HCPCS: 36415; 80048; 80053; 81001; 83605; 85025; 87040; 87804; 99285; J7030; J7040; A4216; J0295

== ENCOUNTER → 2021-12-13 | Outpatient (CLI) | payer MEDICARE, SELFPAY ==
--- NOTE | 2021-12-13 13:57 | ECHOCS_ITS ---
Reason For Study: CAD/ASHD Procedure This was a 2D Doppler, Color Flow transthoracic echocardiogram. The study was technically difficult. Contrast injection was performed. Exam performed in department. Left Ventricle Normal LV size. Moderate concentric left ventricular hypertrophy. Left ventricular systolic function is normal. The estimated ejection fraction is 65 %. No regional wall motion abnormalities noted. Right Ventricle Normal RV size. Normal systolic function. Atria The left atrium is moderately enlarged. The right atrium is moderately enlarged. Mitral Valve Normal mitral valve. Tricuspid Valve Normal tricuspid valve. Mild tricuspid valve insufficiency. Pulmonary artery systolic pressure is 20 mmHg. Aortic Valve Trisinus/trileaflet aortic valve. Peak aortic valve gradient 38 mmHg. Mean aortic valve gradient 20 mmHg. Moderate aortic stenosis. Pulmonic Valve Normal pulmonic valve. Great Vessels Normal aortic root. The pulmonary artery is normal size. Normal inferior vena cava. Pericardium/Pleural No pericardial effusion. Medication 22 gauge I.V. with prn adaptor inserted into right arm. Diluted definity 3ml given slow IV push to enhance endocardial definition. MMode/2D Measurements & Calculations LVIDd: 5.1 cm IVSd: 2.0 cm LVOT diam: 2.0 cm LVIDs: 2.8 cm LVPWd: 1.8 cm RVDd: 4.3 cm FS: 46.3 % LVOT area: 3.3 cm2 LAV(MOD-bp): 112.5 ml LA A4 area: 30.8 cm2 RA A4 area: 28.3 cm2 LAV(MOD-bp) Indexed: 49.0 ml/m2 LAV(MOD-sp2): 102.9 ml LAV(MOD-sp4): 119.1 ml Doppler Measurements & Calculations MV E max bhargavi: 111.7 cm/sec Ao V2 max: 307.0 cm/sec LV V1 max: 94.5 cm/sec Ao max P.8 mmHg LV V1 max P.6 mmHg Ao V2 mean: 200.3 cm/sec LV V1 mean P.1 mmHg Ao mean P.1 mmHg LV V1 mean: 68.8 cm/sec Ao V2 VTI: 63.2 cm LV V1 VTI: 23.2 cm SHARON(I,D): 1.2 cm2 SHARON(V,D): 1.0 cm2 SV(LVOT): 75.6 ml PA V2 max: 80.3 cm/sec TR max bhargavi: 216.8 cm/sec TR max P.8 mmHg ECHO/Echo Complete W/ Contrast Interpretation Summary Normal LV size. Left ventricular systolic function is normal. The estimated ejection fraction is 65 %. Mean aortic valve gradient 20 mmHg. Moderate aortic stenosis. The left atrium is moderately enlarged. The right atrium is moderately enlarged. Moderate concentric left ventricular hypertrophy. Contrast injection was performed. Ordering Physician: LILY QUINONES Referring Physician: LILY QUINONES Performed By: Valerio Jennings RCS
== END | disposition home or self-care (01) ==
LOC: CVS 13:55
DX: I25.10 Atherosclerotic heart disease of native coronary artery without angina pectoris (principal)
CPT/HCPCS: 93306; Q9957; A4216; C8929

== ENCOUNTER 2023-07-31 13:39 | Emergency (ER) | payer MEDICARE, SELFPAY ==
[2023-07-31 13:41] VITALS: BP 139/73; PULSE 92; RESP 18; TEMP 36.1; O2SAT 97; BMI 40.0
--- NOTE | 2023-07-31 15:20 | EX.ED.DYSGE1 ---
HPI History of Present Illness Chief Complaint: Lower Extremity Injury [facility] Medical History (Updated 07/31/23 @ 15:[address] Walter Johnson, DO) Colon cancer Home Medications Losartan/Hydrochlorothiazide [Hyzaar 50-12.5 Tablet] 1 tab PO QHS BP 09/13/19 [History Last Taken 09/12/19 23:00] aspirin 81 mg chewable tablet 81 mg PO DAILY@0800 [facility] 09/13/19 [History Last Taken Unknown] carvedilol 25 mg tablet 25 mg PO BID BP 09/13/19 [History Last Taken 09/13/19 09:00] clonidine HCl 0.3 mg tablet 0.3 mg PO BID BP 09/13/19 [History Last Taken 09/13/19 09:00] isosorbide mononitrate 30 mg tablet,extended release 24 hr 30 mg PO DAILY BP 09/13/19 [History Last Taken 09/13/19 09:00] morphine 15 mg immediate release tablet 15 mg PO TID PRN Pain Or Fever 09/13/19 [History Last Taken 09/13/19 17:00] tramadol 50 mg tablet 100 mg PO BID PRN pain 09/13/19 [History Last Taken 09/13/19 17:00] amoxicillin 875 mg-potassium clavulanate 125 mg tablet 1 ea PO BID #14 tabs 09/15/19 [Rx Last Taken Unknown] cephalexin 500 mg capsule 500 mg PO Q6 #28 CAPSULES 07/31/23 [Rx Last Taken Unknown] sulfamethoxazole 800 mg-trimethoprim 160 mg tablet (Bactrim DS) 1 tab PO BID #14 tabs 07/31/23 [Rx Last Taken Unknown] Allergy/AdvReac Type Severity Reaction Status Date / Time cat dander Allergy itchy, Verified 07/31/23 13:43 watery eyes Social History Smoking Status: Former smoker EXAM Physical Exam Const Vital Signs: 07/31/23 13:41 Temperature 97 F L Temperature Source Temporal Pulse Rate 92 Respiratory Rate 18 Blood Pressure 139/73 H Blood Pressure Mean 95 Pulse Ox 97 Oxygen Delivery Method Room Air MDM MDM MDM Narrative Medical decision making narrative: HISTORY OF PRESENT ILLNESS: 67-year-old male here for leg pain. Notes he had recent trauma to the left lower extremity noted redness to the back of his left leg. Patient denies active cancer, being bedridden for greater than 3 days, denies unilateral leg swelling, denies any varicose veins, denies any calf tenderness, denies tenderness along deep venous system. Denies major surgery within 12 weeks, recent paralysis, previous DVT. REVIEW OF SYSTEMS: Pertinent positives: Leg pain Pertinent negatives: Nausea, vomiting PHYSICAL EXAM: Nursing triage notes reviewed, Vital signs reviewed Constitutional: please see mdm Extremities: Slight edema noted to bilateral lower extremities Neuro: N intact sensation L1-S1 dermatomal distributions. Intact 5/5 strength in hip flexion (T12-L3). Knee extension (L2-L4). Ankle dorsiflexion (L4-L5). Ankle plantar flexion (S1). Great toe extension (L5). 2+ patellar and Achilles DTRs. Skin: Approximate 10 x 10 cm area of redness to the posterior calf, no fluctuance, induration, no crepitus. MEDICAL DECISION MAKING: Chief Complaint: Leg pain External records reviewed: No recent ED visits or hospitalizations, no recent imaging studies Factors affecting care: hypertension [facility] Narrative: Patient was hemodynamically stable, afebrile, nontoxic-appearing. Exam consistent with cellulitis. I considered the following differential diagnosis: Fracture, dislocation, DVT, arterial occlusion, cellulitis, necrotizing fasciitis THe patient has a low Wells DVT score. He had no significant trauma or point tenderness over bony regions to suggest fracture or dislocation. He had symmetric pulses. There is no fluctuance, induration, crepitus or bullae to suggest necrotizing fasciitis. THe patient was treated with broad-spectrum antibiotics. We had a long shared decision-making discussion about his immunocompromise state given colon cancer and immunotherapy. Patient understood risk and benefits of poor response antibiotics and worsening infection and sepsis. Cellulitis was marked with a skin marker and patient was told to return if redness progressed quickly over a matter of hours or if he cannot tolerate antibiotics or if you not see improvement in 3 days. He was given Keflex and Bactrim for broad staph and strep coverage. The patient and/or family, caregivers express understanding. The patient and/or family, caregivers agrees with the plan. Shared decision making: I will have a discussion with the patient and or visitors regarding risk/benefits of further testing or admission. They will be made aware of of the risk/benefits inherent in this decision they will be given the opportunity to voice understanding. Total critical care time today provided was at least 0 minutes. This excludes separately billable procedures. Critical care time (if documented) is secondary to the patient having high probability of clinically significant/life threatening deterioration in the patient's condition which required my urgent intervention. Impression: 1. Cellulitis Dispo: Discharge home Discharge Plan Triage Chief Complaint: Lower Extremity Injury ED Provider: Walter Johnson Dx/Rx/DC Orders Clinical Impression: Cellulitis Instructions: Cellulitis Dc Prescriptions: New cephalexin 500 mg capsule 500 mg PO Q6 Qty: 28 0RF sulfamethoxazole-trimethoprim [Bactrim DS] 800-160 mg tablet 1 tab PO BID Qty: 14 0RF No Action carvedilol 25 MG tablet 25 mg PO BID isosorbide mononitrate 30 MG tablet extended release 24 hr 30 mg PO DAILY clonidine HCl 0.3 MG tablet 0.3 mg PO BID tramadol 50 MG tablet 100 mg PO BID PRN (Reason: pain) aspirin 81 MG tablet,chewable 81 mg PO DAILY@0800 morphine 15 MG tablet 15 mg PO TID PRN (Reason: Pain Or Fever) Losartan/Hydrochlorothiazide [Hyzaar 50-12.5 Tablet] 1 TAB tablet 1 tab PO QHS amoxicillin-pot clavulanate 1 EACH tablet 1 ea PO BID Qty: 14 0RF Primary Care Provider: Bigg Crane Referrals: Bigg Crane PA [Primary Care Provider] - Activity Restrictions/Additional Instructions: Thank you for trusting us with your care today! You have been diagnosed with cellulitis. Please take Tylenol (2 pills, 650 mg), ibuprofen (2 pills, 400 mg) every 6 hours as needed for pain and fever control. Please take antibiotics until course is complete. Please return to the emergency department if your symptoms change or worsen. Specifically if you develop fever, chills, vomiting, worsening redness, rapidly progressive redness. If your symptoms do not show improvement within 3 days. Please follow with your primary care physician for further outpatient evaluation and management. Disposition Disposition: Home, Self Care Discharge Date/Time: 07/31/23 16:00
[2023-07-31] MEDS: Cephalexin 250 MG Capsule 500 MG PO (15:43)
[2023-07-31] MEDS: Smz/Tmp Ds Tablet 1 TABLET PO (15:43)
== END 2023-07-31 16:00 | disposition home or self-care (01) ==
PROVIDERS: Emergency Provider Emergency Medicine; PCP Physician Assistant; Visit Provider Emergency Medicine
DX: L03.116 Cellulitis of left lower limb (principal); Z87.891 Personal history of nicotine dependence; Z86.718 Personal history of other venous thrombosis and embolism
CPT/HCPCS: 99283

== ENCOUNTER 2025-03-11 20:34 | Emergency (ER) | payer MEDICARE, SELFPAY ==
[2025-03-11 20:34] VITALS: BP 192/100; PULSE 79; RESP 18; TEMP 36.8; O2SAT 98; BMI 36.8
--- NOTE | 2025-03-11 20:58 | EDS_ITS ---
HPI History of Present Illness Chief Complaint: Other, Pain/Inj Detail of Chief Complaint: neck stiffness Informant: patient Narrative Narrative: 69-year-old male presenting with neck pain and stiffness. He states this started yesterday gradually, much worse as the day has gone on today. He denies headache, fevers, chills, vision changes, photophobia, nausea, vomiting, peripheral neurologic symptoms or disequilibrium/trouble walking. He denies any injury that he can recall. He states he lifted a heavy bag of dog food yesterday but this was after the neck stiffness started did not seem to make him hurt worse. It does hurt worse if he turns his head both ways, worse to the right. Does not recall ever having had this before. He states he is concerned about meningitis. He is on immunotherapy for metastatic colon cancer, he d escribes metastases that were found below the diaphragm only many of which have been treated. [facility] Medical History (Updated 03/11/25 @ 22:[address] Rony Sifuentes MD) Atrial fibrillation Colon cancer Home Medications ?Medication ?Instructions ?Recorded ?Last Taken ?Type Losartan/Hydrochlorothiazide 1 tab PO QHS BP 09/13/19 09/12/19 23:00 History [Hyzaar 50-12.5 Tablet] aspirin 81 mg chewable tablet 81 mg PO DAILY@0800 [facility] 09/13/19 Unknown History carvedilol 25 mg tablet 25 mg PO BID BP 09/13/19 09:00 History clonidine HCl 0.3 mg tablet 0.3 mg PO BID BP 09/13/19 09/13/19 09:00 History isosorbide mononitrate 30 mg 30 mg PO DAILY BP 0 09/13/19 09:00 History tablet,extended release 24 hr morphine 15 mg immediate release 15 mg PO TID PRN Pain Or Fever 09/13/19 09/13/19 17:00 History tablet tramadol 50 mg tablet 100 mg PO BID PRN pain 09/1309/13/19 17:00 History amoxicillin 875 mg-potassium 1 ea PO BID #14 tabs 08/23 12/08 Unknown Rx clavulanate 125 mg tablet cephalexin 500 mg capsule 500 mg PO Q6 #28 CAPSULES Unknown Rx sulfamethoxazole 800 1 tab PO BID #14 tabs Unknown Rx mg-trimethoprim 160 mg tablet (Bactrim DS) Allergy/AdvReac Type Severity Reaction Status Date / Time cat dander Allergy itchy, Verified 03/11/25 20:34 watery eyes Family History no significant family his Social History Smoking Status: Former smoker ROS ROS ED Constitutional Constitutional ED: Denies chills or fever(s) Eyes Eyes: Denies change in vision or diplopia ENT ENT ED: Denies rhinorrhea or sore throat Cardiovascular Cardiovascular: Denies chest pain or palpitations Respiratory/Chest Respiratory/Chest: Denies cough or dyspnea Gastrointestinal Gastrointestinal: Denies abdominal pain, diarrhea, nausea or vomiting Genitourinary Genitourinary ED: Denies dysuria or hematuria Musculoskeletal Musculoskeletal: Reports as per HPI, neck pain and stiffness; Denies back pain, numbness or radiating pain into limb Integumentary Denies abscess or rash Neurologic Neurologic: Denies headache(s), paresthesias or weakness Psychiatric Psychiatric: Denies anxiety or suicidal thoughts EXAM Physical Exam Const Vital Signs: 03/11/25 20:34 03/11/25 20:40 Temperature 98.2 F Temperature Source Temporal Pulse Rate 79 Respiratory Rate 18 Respiratory Effort Normal Non-Labored Blood Pressure 192/100 H Blood Pressure Mean 130 Pulse Ox 98 Oxygen Delivery Method Room Air Positive well nourished and well developed Constitutional Narrative: Well-appearing conversive no distress General Appearance ED: well developed and NAD HEENT Reports moist mucous membranes normocephalic and atraumatic Eyes PERRL and EOMs intact bilaterally Neck Neck Narrative: Limited range of motion due to pain, but there is no meningismus. There is rig idity when I get to limits that make his pain significant. There is no posterior midline or paraspinal cervical tenderness. He has a shorter limit turning his head to the right than the left. He can take his chin down to his chest without any difficulty. Resp normal respiratory effort and clear to auscultation bilaterally Cardio regular rate, regular rhythm and no murmurs GI non-tender and non-distended Auscultation: normoactive bowel sounds Palpation: soft Back/Spine no CVA tenderness General Back: other FROM Extremity normal to inspection General Extremety ED: Negative for edema, pulses abnormal or tenderness General Extremity: Negative for edema or pulses abnormal Neuro oriented x3, CN's II-XII intact bilaterally and no sensory deficits noted Sensorium / Orientation: awake and alert Motor Exam: strength 5/5 throughout Psych mental status grossly normal Skin no rashes or lesions noted and no wounds MDM MDM MDM Narrative Medical decision making narrative: I advised patient that I suspect this is muscular but since he has no reason more than happy to do an LP to evaluate for meningitis. He is concerned and is amenable to the LP. I discussed the fact that since he has a history of metastatic cancer I would recommend getting a head CT to make sure it is okay first and then proceeding with the LP. He is comfortable with that plan. That was done, I reviewed the CT results, it is negative for any acute on my interpretation, but as I discussed with the patient this is a noncontrast CT looking for large mass effect pathology that would cause increased intracranial pressure and would be a contraindication for LP, which is not present but does not rule out intracranial metastases. Prior to doing the LP, I discussed pros and cons with the patient, and we discussed his medications. The list in the EMR does not include any anticoagulants and when I confirmed this with him he states he is actually taking Eliquis because of a history of A-fib. Given that, I think the risks of the procedure outweigh the potential benefits since my pretest probability for meningitis is extremely low here since he has no other symptoms. He understands that and is agreement. Prefer while waiting for blood work to come back and give him a dose of IV Norflex since he already took morphine and tramadol earlier at home. After Norflex he is a little better, still hurts to turn his head but he is doing well clinically. White count 6.4, although this is insensitive to rule out bacterial meningitis, my clinical suspicion was low to begin with. Discussed this with the patient, I recommend supportive care, if he develops more symptoms of meningitis we are happy to revisit the pro-con profile and he is comfortable with that plan. Lab Data Attestation: I reviewed the patient's lab results. Labs: Laboratory Results - last 24 hr 03/11/25 21:20 WBC 6.4 RBC 4.17 L Hgb 12.4 L Hct 37.3 L MCV 89.4 MCH 29.7 MCHC 33.2 RDW Std Deviation 43.5 RDW Coeff of Henrry 13.2 Plt Count 200 MPV 9.8 Immature Gran % (Auto) 0.200 Neut % (Auto) 56.6 Lymph % (Auto) 27.4 [place] % (Auto) 8.4 Eos % (Auto) 6.8 H Baso % (Auto) 0.6 Absolute Neuts (auto) 3.6 Absolute Lymphs (auto) 1.76 Nucleated RBC % 0 Sodium 141 Potassium 3.9 Chloride 105 Carbon Dioxide 24.7 Anion Gap 11 BUN 22 H Creatinine 1.03 Estim Creat Clear Calc 79.16 Est GFR (MDRD) Non-Af 78 BUN/Creatinine Ratio 21.1 H Glucose 103 H Calcium 8.9 Radiography Diagnostic Testing: Clinical Impression(s) from Imaging Studies Brain CT 03/11/25 21:28 IMPRESSION: *No acute intracranial abnormality. *Left-sided paranasal sinusitis: complete opacification of the left maxillary, ethmoid, and frontal sinuses with mucosal thickening. Reading Location: [facility] Additional Tests and Interventions Diagnositc testing considered but not performed: LP - see above Discharge Plan Triage Chief Complaint: Other, Pain/Inj ED Provider: Rony Sifuentes Dx/Rx/DC Orders Clinical Impression: Acute torticollis Instructions: Torticollis (Wry Neck) Prescriptions: No Action carvedilol 25 MG tablet 25 mg PO BID isosorbide mononitrate 30 MG tablet extended release 24 hr 30 mg PO DAILY clonidine HCl 0.3 MG tablet 0.3 mg PO BID tramadol 50 MG tablet 100 mg PO BID PRN (Reason: pain) aspirin 81 MG tablet,chewable 81 mg PO DAILY@0800 morphine 15 MG tablet 15 mg PO TID PRN (Reason: Pain Or Fever) Losartan/Hydrochlorothiazide [Hyzaar 50-12.5 Tablet] 1 TAB tablet 1 tab PO QHS amoxicillin-pot clavulanate 1 EACH tablet 1 ea PO BID Qty: 14 0RF cephalexin 500 mg capsule 500 mg PO Q6 Qty: 28 0RF sulfamethoxazole-trimethoprim [Bactrim DS] 800-160 mg tablet 1 tab PO BID Qty: 14 0RF Primary Care Provider: Care Physician,No Primary Referrals: Doctor,Your [Non-Staff] - 3-5 Days if not improving Activity Restrictions/Additional Instructions: If you develop any signs or symptoms of meningitis beyond the neck stiffness that you have, return to the ER for reevaluation: Headache, light sensitivity, fevers or chills, confusion and/or seizures. Print Language: Upper Sorbian Disposition Disposition: Home, Self Care
--- NOTE | 2025-03-11 21:28 | CT_ITS ---
PROCEDURE: BRAIN/HEAD WITHOUT CONTRAST 03/11/2025 REASON FOR EXAM: NECK STIFFNESS, HX METASTATIC COLON CA TECHNIQUE: BRAIN/HEAD WITHOUT CONTRAST Coronal and Sagittal reconstruction series were provided. One or more dose reduction techniques were used (e.g., Automated exposure control, adjustment of the mA and/or kV according to patient size, use of iterative reconstruction technique. RADIATION DOSE SUMMARY: CTDlvol: 44 mGy DLP: 863 mGycm FINDINGS: The ventricles are normal in size and configuration without hydrocephalus. Puckett- white matter differentiation is preserved. There is no acute intracranial hemorrhage, territorial infarction, mass effect, midline shift, or extra-axial fluid collection. Paranasal sinuses show complete opacification of the left maxillary, left ethmoid, and left frontal sinuses with additional mucosal thickening. The mastoid air cells are clear. The calvarium and skull base are intact. CT/Brain/Head without Contrast IMPRESSION: *No acute intracranial abnormality. *Left-sided paranasal sinusitis: complete opacification of the left maxillary, ethmoid, and frontal sinuses with mucosal thickening. Reading Location: [id number]
[2025-03-11 21:35] LABS: Hematocrit 37.3 % (40-54); Hemoglobin 12.4 g/dL (13.0-16.5); Immature Granulocytes Count 0.010 X10^3/uL (0.0-0.0); Mean Corp Hgb Conc 33.2 g/dL (32-36); Mean Corpuscular Volume 89.4 fL (80-94); Mean Platelet Vol. 9.8 fl (6.2-12.0); NRBC Flagged by Analyzer 0 % (0-5); Platelet Count 200 K/mm3 (150-450); RBC Distribution Width CV 13.2 % (11.6-14.6); RBC Distribution Width SD 43.5 fl (35.1-43.9); Red Blood Count 4.17 M/mm3 (4.6-6.2); White Blood Count 6.4 K/mm3 (4.4-11.0)
[2025-03-11 21:46] LABS: Anion Gap 11 (5-15); BUN 22 mg/dL (4-19); BUN/Creat Ratio 21.1 RATIO (10-20); Calcium,Total 8.9 mg/dL (7.6-11.0); Carbon Dioxide 24.7 mmol/L (21.0-32.0); Chloride 105 mmol/L (98-108); Estimated Creatinine Clearance 79.16 ml/min (50-250); Glucose 103 mg/dL (70-99); Potassium 3.9 mmol/L (3.3-5.1)
[2025-03-11] MEDS: Orphenadrine 60 MG/2 ML Ampul IV (21:47)
[2025-03-11 22:25] VITALS: BP 170/70; PULSE 79; RESP 18; TEMP 36.8; O2SAT 98
[2025-03-11 22:34] VITALS: BP 170/70
== END 2025-03-11 22:42 | disposition home or self-care (01) ==
PROVIDERS: Emergency Provider Emergency Medicine; Visit Provider Emergency Medicine
DX: M43.6 Torticollis (principal); C18.9 Malignant neoplasm of colon, unspecified; Z87.891 Personal history of nicotine dependence
CPT/HCPCS: 70450; 80048; 85025; 96374; 99282; A4216

== ENCOUNTER → 2025-05-05 | Outpatient (CLI) | payer MEDICARE, SELFPAY ==
[2025-05-05 18:15] LABS: Hematocrit 32.0 % (40-54); Hemoglobin 10.7 g/dL (13.0-16.5); Immature Granulocytes Count 0.020 X10^3/uL (0.0-0.0); Mean Corp Hgb Conc 33.4 g/dL (32-36); Mean Corpuscular Volume 89.4 fL (80-94); Mean Platelet Vol. 10.2 fl (6.2-12.0); NRBC Flagged by Analyzer 0 % (0-5); Platelet Count 256 K/mm3 (150-450); RBC Distribution Width CV 13.0 % (11.6-14.6); RBC Distribution Width SD 43.0 fl (35.1-43.9); Red Blood Count 3.58 M/mm3 (4.6-6.2); White Blood Count 6.0 K/mm3 (4.4-11.0)
[2025-05-05 19:02] LABS: CRP 88.10 mg/L (0.0-3.0)
[2025-05-05 19:27] LABS: Synovial Fld Mononuclear WBC # 1.239 10^3/ul; Synovial Fld Mononuclear WBC % 7.3 %; Synovial Fld Polynuclear WBC # 15.678 10^3/uL; Synovial Fld Polynuclear WBC % 92.7 %
[2025-05-05 20:59] LABS: RBC /Synovial Fluid 0.005 10^6/uL (0)
[2025-05-05 21:01] LABS: Total Cell Count Synovial Fld 17.5600 10^3/uL (0.000-0.000); WBC / Synovial Fluid 17.4700 10^3/uL (0.000-0.002)
[2025-05-05 21:12] LABS: AUTO B FLUID DILUENT BKGD CT WBC <0.1 RBC <0.01 (W<.1,R<.01); Source- Body Fluid SYNOVIAL
[2025-05-05 21:21] LABS: Source / Synovial Fluid RIGHT KNEE
[2025-05-05 21:22] LABS: Appearance /Synovial Fluid Turbid (CLEAR); Color / Synovial Fluid Yellow (Pale Yellow)
[2025-05-05 23:32] LABS: Body Fluid QC Type(s) BF1Q,BF2Q
[2025-05-10 15:03] LABS: CRYSTALS, BODY FLUID CALCIUM PYROPHOS
== END | disposition home or self-care (01) ==
LOC: LAB 17:16
PROVIDERS: Referring Provider Physician Assistant; Visit Provider Physician Assistant
DX: M25.461 Effusion, right knee (principal); M25.561 Pain in right knee
CPT/HCPCS: 36415; 85025; 85652; 86140; 87070; 87075; 87205; 89050; 89051; 89060